=== PATIENT | female | born 1960 | race Caucasian/White ===

== ENCOUNTER 2021-01-13 19:00 | Emergency (ER) | payer OTHER ==
[~2021-01-13] VITALS: Ht 165.1 cm; Wt 63.5 kg
[2021-01-13] MEDS ORDERED: BACTRIM DS TAB1 EAC1 PO (19:15)
[2021-01-13] MEDS ORDERED: NYSTATIN100000 UNI SW&SWALLOW ×2 (19:15→20:30)
[2021-01-13 19:36] LABS: ABSOLUTE BASOPHILS 0.1 thou/uL (0.0-0.2); ABSOLUTE EOSINOPHILS 0.1 thou/uL (0.0-0.7); ABSOLUTE LYMPHOCYTES 2.5 thou/uL (0.8-5.3); ABSOLUTE NEUTROPHILS 6.9 thou/uL (1.6-8.1); EOSINOPHILS 1.2 %; HEMATOCRIT 38.4 % (37.0-47.0); HEMOGLOBIN 13.1 gm/dL (12.0-15.0); LYMPHOCYTES 23.5 %; MCH 30.2 pg (26.0-34.0); MCHC 34.2 g/dL (28.0-37.0); MCV 88.2 fL (80.0-100.0); MONOCYTES 9.4 %; MPV 9.9 fl. (7.2-11.1); NUCLEATED RBCS 0 /100WBC; PLATELET COUNT* 235 thou/uL (150-400); POLYS 64.9 %; RBC 4.36 mil/uL (4.20-5.00); RDW-CV 12.9 % (10.5-14.5); WBC 10.6 thou/uL (4.0-11.0)
[2021-01-13 19:41] LABS: CALCIUM 8.8 mg/dL (8.5-10.1); CREATININE 0.7 mg/dL (0.6-1.3); POTASSIUM 3.7 mmol/L (3.5-5.1)
[2021-01-13 19:47] LABS: URINE BILIRUBIN NEGATIVE (Negative); URINE BLOOD TRACE (Negative); URINE CLARITY CLEAR; URINE COLOR YELLOW; URINE GLUCOSE-RANDOM NEGATIVE (Negative); URINE KETONES NEGATIVE (Negative); URINE LEUKOCYTES-REFLEX 1+ (Negative); URINE NITRITE-REFLEX NEGATIVE (Negative); URINE PROTEIN NEGATIVE (Negative); URINE UROBILINOGEN 0.2 E.U./dl (0.2-1.0)
[2021-01-13 19:54] LABS: BACTERIA-REFLEX 1-9 Few /HPF (None Seen); CASTS None Seen /LPF (None Seen); CRYSTALS None Seen /LPF (None Seen); SQUAMOUS 4-10 Moderate /LPF (0-3); URINE RBC 0-2 Rare /HPF (0-2); URINE WBC-REFLEX 6-15 Few /HPF (0-5)
[2021-01-13 19:54] LABS: ALBUMIN 3.7 g/dL (3.4-5.0); MAGNESIUM 2.3 mg/dL (1.8-2.4); TOTAL BILIRUBIN 0.2 mg/dL (<0.1-1.0)
[2021-01-13 20:35] VITALS: BP 120/79
--- NOTE | 2021-01-14 16:39 | EKG ---
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1960 Requested By: Viola Alas Order Number: [id number] MD: Jose Miguel Bedolla Measurements Intervals [place] Rate: 77 P: 44 UT: 157 QRS: 18 QRSD: 111 T: 24 QT: 374 QTc: 424 Interpretive Statements Sinus rhythm RSR' in V1 or V2, right VCD or RVH Baseline wander in lead(s) I,III,aVL,V1,V2,V3,V5 No previous ECG available for comparison Electronically Signed On 01-14-2021 16:39:42 PIPELINE INTEGRITY ENGINEER by Jose Miguel Bedolla [email or web address] <ELECTRONICALLY SIGNED> By: Jose Miguel Bedolla MD, FACC 01/14/21 1639 06 06 Jose Miugel Bedolla MD, FAC /EPI
== END 2021-01-13 20:35 | disposition home or self-care (01) ==
LOC: M.ERS 19:00
PROVIDERS: Emergency Medicine
DX: B37.9 Candidiasis, unspecified (principal); Z20.822 Contact with and (suspected) exposure to COVID-19; R07.89 Other chest pain; R06.02 Shortness of breath; J44.9 Chronic obstructive pulmonary disease, unspecified; F17.210 Nicotine dependence, cigarettes, uncomplicated; Z88.1 Allergy status to other antibiotic agents; Z88.0 Allergy status to penicillin; Z79.2 Long term (current) use of antibiotics; Z79.899 Other long term (current) drug therapy

== ENCOUNTER 2021-02-25 07:30 | Emergency (ER) | payer OTHER ==
[~2021-02-25] VITALS: Ht 165.1 cm; Wt 63.5 kg
[~2021-02-25 07:30] MED LIST: BACTRIM DS TAB1 EAC1 PO; NYSTATIN100000 UNI SW&SWALLOW
[2021-02-25] MEDS ORDERED: APAP W/CODEINE1 TA2 PO (12:18)
[2021-02-25] MEDS ORDERED: VISTARIL 25 MG25 M1 PO (12:18)
[2021-02-25 12:24] LABS: URINE BILIRUBIN NEGATIVE (Negative); URINE BLOOD NEGATIVE (Negative); URINE CLARITY CLEAR; URINE COLOR YELLOW; URINE GLUCOSE-RANDOM NEGATIVE (Negative); URINE KETONES NEGATIVE (Negative); URINE LEUKOCYTES-REFLEX NEGATIVE (Negative); URINE NITRITE-REFLEX NEGATIVE (Negative); URINE PROTEIN NEGATIVE (Negative); URINE SPECIFIC GRAVITY <= 1.005 (1.005-1.030); URINE UROBILINOGEN 0.2 E.U./dl (0.2-1.0)
[2021-02-25 12:40] VITALS: BP 110/70
--- NOTE | 2021-02-26 11:12 | EKG ---
[place] [address] ELECTROCARDIOGRAM REPORT Name: PARVEZ KING Room: 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1960 Requested By: Jana Read Order Number: [id number] MD: Jose Miguel Bedolla Measurements Intervals [place] Rate: 87 P: 54 DE: 140 QRS: 32 QRSD: 79 T: 39 QT: 353 QTc: 425 Interpretive Statements Sinus rhythm RSR' in V1 or V2, right VCD or RVH Baseline wander in lead(s) V1 Compared to ECG 01/13/2021 19:07:20 No significant changes Electronically Signed On 02-26-2021 11:12:04 ROVING WEIGHT GAUGER by Jose Miguel Bedolla [email or web address] <ELECTRONICALLY SIGNED> By: Jose Miguel Bedolla MD, [facility] 02/26/21 1112 0755 0755 Jose Miguel Bedolla MD, [facility] /EPI
== END 2021-02-25 12:44 | disposition home or self-care (01) ==
LOC: M.ERS 07:30
PROVIDERS: Physician Assistant
DX: U07.1 COVID-19 (principal); F41.9 Anxiety disorder, unspecified; J44.9 Chronic obstructive pulmonary disease, unspecified; Z88.1 Allergy status to other antibiotic agents; Z88.0 Allergy status to penicillin

== ENCOUNTER 2021-04-19 03:33 | Emergency (ER) | payer OTHER ==
[~2021-04-19] VITALS: Ht 165.1 cm; Wt 63.5 kg
[~2021-04-19 03:33] MED LIST changes: +APAP W/CODEINE1 TA2 PO; +VISTARIL 25 MG25 M1 PO
[2021-04-19 04:20] LABS: ABSOLUTE BASOPHILS 0.1 thou/uL (0.0-0.2); ABSOLUTE EOSINOPHILS 0.2 thou/uL (0.0-0.7); ABSOLUTE LYMPHOCYTES 3.3 thou/uL (0.8-5.3); ABSOLUTE MONOCYTES 0.9 thou/uL (0.0-1.2); ABSOLUTE NEUTROPHILS 6.3 thou/uL (1.6-8.1); EOSINOPHILS 1.5 %; HEMATOCRIT 39.1 % (37.0-47.0); HEMOGLOBIN 13.2 gm/dL (12.0-15.0); LYMPHOCYTES 30.3 %; MCH 29.4 pg (26.0-34.0); MCHC 33.8 g/dL (28.0-37.0); MCV 87.1 fL (80.0-100.0); MONOCYTES 8.6 %; MPV 10.2 fl. (7.2-11.1); NUCLEATED RBCS 0 /100WBC; PLATELET COUNT* 212 thou/uL (150-400); POLYS 58.6 %; RDW-CV 13.4 % (10.5-14.5); WBC 10.8 thou/uL (4.0-11.0)
[2021-04-19 04:31] LABS: CALCIUM 8.5 mg/dL (8.5-10.1); CREATININE 0.6 mg/dL (0.6-1.3); POTASSIUM 3.6 mmol/L (3.5-5.1)
[2021-04-19 04:43] LABS: ALBUMIN 3.6 g/dL (3.4-5.0); MAGNESIUM 2.2 mg/dL (1.8-2.4); TOTAL BILIRUBIN 0.2 mg/dL (<0.1-1.0); TOTAL PROTEIN 6.6 g/dL (6.4-8.2)
[2021-04-19 06:40] VITALS: BP 134/98
--- NOTE | 2021-04-19 09:54 | EKG ---
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: : 1960 Requested By: Viola Alas Order Number: [id number] MD: Jose Miguel Bedolla Measurements Intervals [place] Rate: 76 P: 40 SC: 150 QRS: 6 QRSD: 114 T: 28 QT: 387 QTc: 436 Interpretive Statements Sinus rhythm artifact noted Probable left atrial enlargement Borderline intraventricular conduction delay RSR' in V1 or V2, right VCD or RVH Compared to ECG 02/25/2021 07:55:07 No significant changes Electronically Signed On 04-19-2021 9:54:40 LITURGICAL MUSIC DIRECTOR by Jose Miguel Bedolla [email or web address] <ELECTRONICALLY SIGNED> By: Jose Miguel Bedolla MD, [facility] 04/19/21 0954 0340 Jose Miguel Bedolla MD, [facility] /EPI
== END 2021-04-19 06:40 | disposition home or self-care (01) ==
LOC: M.ERS 03:33
PROVIDERS: Emergency Medicine
DX: R07.89 Other chest pain (principal); J44.9 Chronic obstructive pulmonary disease, unspecified; Z79.899 Other long term (current) drug therapy; Z88.1 Allergy status to other antibiotic agents; Z88.0 Allergy status to penicillin